=== PATIENT | male | born 1990 | race African-American/Black ===

== ENCOUNTER 2017-03-30 20:26 | Emergency (ER) | payer MEDICAID ==
[~2017-03-30] VITALS: Ht 182.9 cm; Wt 131.0 kg
[2017-03-30] MEDS ORDERED: SODIUM CHLORIDE 0.9% 1,000 ML IV ONE (21:54)
[2017-03-30] MEDS ORDERED: MORPHINE SULFATE 10 MG/ML CPJ ONE (22:00)
[2017-03-30] MEDS ORDERED: TETANUS, DIPHTHERIA, PERTUSSIS VAC/PF 0.5ML (>7YR OLD) IM ONE (22:00)
[2017-03-30] MEDS ORDERED: ONDANSETRON HCL 4MG/2ML VIAL IV ONE (22:00)
[2017-03-30] MEDS ORDERED: ONDANSETRON HCL 4MG/2ML VIAL ONE (22:00)
[2017-03-30] MEDS ORDERED: BACITRACIN ZINC OINT UDPKT TOP ONE (22:00)
[2017-03-30] MEDS ORDERED: MORPHINE SULFATE 4 MG/ML CPJ (NOT FOR IM USE) IV ONE (22:00)
[2017-03-30] MEDS ORDERED: KETOROLAC 30MG/ML VIAL IV ONE (23:45)
[2017-03-31 00:09] VITALS: BP 133/82
== END 2017-03-31 00:10 | disposition home or self-care (01) ==
LOC: ER 20:45
DX: S82.831A Other fracture of upper and lower end of right fibula, initial encounter for closed fracture (principal); S60.511A Abrasion of right hand, initial encounter; F12.10 Cannabis abuse, uncomplicated; V18.0XXA Pedal cycle driver injured in noncollision transport accident in nontraffic accident, initial encounter; Y93.89 Activity, other specified; Y92.488 Other paved roadways as the place of occurrence of the external cause
CPT/HCPCS: 29515; 73130; 73610; 90471; 90715; 96361; 96374; 96375; 99285; J1885; J2270; J2405; J7030; Z7610